=== PATIENT | female | born 1955 | race Caucasian/White ===

== ENCOUNTER → 2020-06-14 12:28 | Outpatient (BNVA) | payer MEDICARE, MEDICAID, SELFPAY | PROVIDERS: Referring Provider Family Medicine; Visit Provider Anesthesiology Pain Medicine | DX: M51.36 Other intervertebral disc degeneration, lumbar region (principal); M47.816 Spondylosis without myelopathy or radiculopathy, lumbar region; M54.9 Dorsalgia, unspecified; M47.812 Spondylosis without myelopathy or radiculopathy, cervical region; F43.10 Post-traumatic stress disorder, unspecified; F17.210 Nicotine dependence, cigarettes, uncomplicated | CPT/HCPCS: 99205 ==

== ENCOUNTER → 2021-02-16 13:42 | Outpatient (BNVA) | payer MEDICARE, MEDICAID, SELFPAY | PROVIDERS: Visit Provider Anesthesiology Pain Medicine | DX: M47.812 Spondylosis without myelopathy or radiculopathy, cervical region (principal); M47.816 Spondylosis without myelopathy or radiculopathy, lumbar region; M51.36 Other intervertebral disc degeneration, lumbar region; M79.604 Pain in right leg; M79.605 Pain in left leg; F17.210 Nicotine dependence, cigarettes, uncomplicated | CPT/HCPCS: 99214 ==

== ENCOUNTER 2021-02-16 14:29 | Outpatient (CLI) | payer MEDICARE, MEDICAID, SELFPAY ==
--- NOTE | 2021-02-16 14:37 | XR_ITS ---
WS: [email or web address] LUMBAR SPINE: 5 VIEWS TECHNIQUE: AP, obliques, lateral and L5-S1 spot. HISTORY: M47.816 - Spondylosis without myelopathy or radiculopathy... COMPARISON: None available. Diffuse osteopenia. L3 anterolisthesis by 2.5 mm and L4 anterolisthesis by 4.6 mm. Mild disc space na rrowing at L5-S1. Facet joint arthritis is moderate from L3-4 to L5-S1. Disc spaces are narrowed throughout. There is moderate bilateral foraminal stenosis. The most signifi cant stenosis is bilateral but greatest on the LEFT at L2-3 and L3-4 and L4-5. Mild SI joint narrowing. XR/XR lumbar spine min 4V [id number] IMPRESSION: 1. No lumbar spine fracture. 2. Mild diffuse osteopenia. 3. Mild anterolisthesis of L3 and L4. 4. Bilateral foraminal stenosis is diffuse but most significant on the LEFT fr om L2-3 to L4-5. 5. Facet joint arthritis most significant from L4-5 and L5-S1.
--- NOTE | 2021-02-16 14:37 | XR_ITS ---
WS: [email or web address] CERVICAL SPINE 5 VIEWS HISTORY: M47.812 - Spondylosis without myelopathy or radiculopathy... COMPARISON: None available. TECHNIQUE: AP, oblique and lateral radiographs. 2 mm anterolisthesis of C4. Mild disc space narrowing at C5-6 and C6-7. Bones are diffusely osteopeni c. Very mild narrowing of the foramen throughout the cervical spine. Lateral masses of C1 and C2 are aligned odontoid is intact. Facet joint arthritis bilaterally greatest at C5-6 and C6-7. XR/XR cervical spine 4-5V [id number] IMPRESSION: 1. No cervical spine fracture. 2. C4 anterolisthesis by 2 mm. 3. Mild mild diffuse narrowing of the foramen throughout the cervical spine an d mild facet joint arthritis, greatest at C5-6 and C6-7.
== END 2021-02-16 14:30 | disposition home or self-care (01) ==
PROVIDERS: PCP Family Medicine; Visit Provider Anesthesiology Pain Medicine
DX: M47.816 Spondylosis without myelopathy or radiculopathy, lumbar region (principal); M47.812 Spondylosis without myelopathy or radiculopathy, cervical region; M85.88 Other specified disorders of bone density and structure, other site; M48.061 Spinal stenosis, lumbar region without neurogenic claudication; M51.36 Other intervertebral disc degeneration, lumbar region; M79.604 Pain in right leg; M79.605 Pain in left leg; F17.210 Nicotine dependence, cigarettes, uncomplicated
CPT/HCPCS: 72050; 72110; 99214

== ENCOUNTER → 2021-03-02 14:20 | Outpatient (BNVA) | payer MEDICARE, MEDICAID, SELFPAY | PROVIDERS: PCP Family Medicine; Visit Provider Anesthesiology Pain Medicine | DX: M79.18 Myalgia, other site (principal); M51.36 Other intervertebral disc degeneration, lumbar region; M47.816 Spondylosis without myelopathy or radiculopathy, lumbar region; M47.812 Spondylosis without myelopathy or radiculopathy, cervical region; M79.604 Pain in right leg; M79.605 Pain in left leg | CPT/HCPCS: 20553; 99214 ==

== ENCOUNTER → 2021-03-15 14:37 | Outpatient (BNVA) | payer MEDICARE, MEDICAID, SELFPAY | PROVIDERS: PCP Family Medicine; Visit Provider Anesthesiology Pain Medicine | DX: M47.812 Spondylosis without myelopathy or radiculopathy, cervical region (principal); M54.16 Radiculopathy, lumbar region | CPT/HCPCS: 64490; 64491; 64492; J3490 ==

== ENCOUNTER → 2021-03-29 13:07 | Outpatient (BNVA) | payer MEDICARE, MEDICAID, SELFPAY | PROVIDERS: PCP Family Medicine; Visit Provider Anesthesiology Pain Medicine | DX: M47.812 Spondylosis without myelopathy or radiculopathy, cervical region (principal); M54.16 Radiculopathy, lumbar region | CPT/HCPCS: 64490; 64491; 64492; J3490 ==

== ENCOUNTER → 2021-04-19 09:29 | Outpatient (BNVA) | payer MEDICARE, MEDICAID, SELFPAY | PROVIDERS: PCP Family Medicine; Visit Provider Anesthesiology Pain Medicine | DX: M79.18 Myalgia, other site (principal); M51.36 Other intervertebral disc degeneration, lumbar region; M47.816 Spondylosis without myelopathy or radiculopathy, lumbar region; M47.812 Spondylosis without myelopathy or radiculopathy, cervical region; M79.604 Pain in right leg; M79.605 Pain in left leg | CPT/HCPCS: 20552; 20553; 99214 ==

== ENCOUNTER → 2021-05-10 13:40 | Outpatient (BNVA) | payer MEDICARE, MEDICAID, SELFPAY | PROVIDERS: PCP Family Medicine; Visit Provider Anesthesiology Pain Medicine | DX: M47.816 Spondylosis without myelopathy or radiculopathy, lumbar region (principal); F17.210 Nicotine dependence, cigarettes, uncomplicated | CPT/HCPCS: 64493; 64494; 64495; J3490 ==

== ENCOUNTER → 2021-06-05 09:34 | Outpatient (BNVA) | payer MEDICARE, MEDICAID, SELFPAY | PROVIDERS: PCP Family Medicine; Visit Provider Anesthesiology Pain Medicine | DX: M51.36 Other intervertebral disc degeneration, lumbar region (principal); M47.816 Spondylosis without myelopathy or radiculopathy, lumbar region; M47.812 Spondylosis without myelopathy or radiculopathy, cervical region; M79.604 Pain in right leg; M79.605 Pain in left leg; F17.210 Nicotine dependence, cigarettes, uncomplicated | CPT/HCPCS: 99214 ==

== ENCOUNTER → 2021-06-19 13:42 | Outpatient (BNVA) | payer MEDICARE, MEDICAID, SELFPAY | PROVIDERS: PCP Registered Nurse; Visit Provider Anesthesiology Pain Medicine | DX: F17.210 Nicotine dependence, cigarettes, uncomplicated (principal); M47.816 Spondylosis without myelopathy or radiculopathy, lumbar region | CPT/HCPCS: 64635; 64636; J1030 ==

== ENCOUNTER → 2021-07-19 11:26 | Outpatient (BNVA) | payer MEDICARE, MEDICAID, SELFPAY | PROVIDERS: PCP Registered Nurse; Visit Provider Registered Nurse | DX: R32 Unspecified urinary incontinence (principal) | CPT/HCPCS: 80053; 85025 ==

== ENCOUNTER 2021-08-02 13:52 | Outpatient (CLI) | payer MEDICARE, MEDICAID, SELFPAY ==
--- NOTE | 2021-08-02 14:03 | CT_ITS ---
WS: [email or web address] LDCT LUNG CANCER SCREENING TECHNIQUE: Noncontrast CT of the chest with coronal and sagittal reformatted images. CLINICAL INFORMATION: NICOTINE DEPENDENCE COMPARISON: None. DLP: 85.21 mGy.cm DIvol: Mean CTDIvol: 1.60 (mGy) All CT scans at [facility] use at least one of these dose optimization techniques: automat ed exposure control; mA and/or kV adjustment per patient size (includes targeted exams where dose is matched to clinical indication); or iterative reconstruction. FINDINGS: Calcified granuloma RIGHT upper lobe. Small noncalcified nodule RIGHT upper lobe measuring 5 mm. Frankie tional smaller tiny noncalcified nodules RIGHT upper lobe some subpleural in location. Tiny noncalcif ied nodules along the LEFT fissure largest measuring 5 mm. Mild aortic calcification. Normal caliber thoracic aorta. No mediastinal or hilar lymphadenopathy. No axillary lymphadenopathy. Coarse LEFT breast calcifications. Adrenal glands are normal. LEFT renal c yst. Moderate thoracic kyphosis. Chronic compression fractures in the mid thoracic spine with vertebr oplasty changes. CT/CT lung screening [id number] IMPRESSION: LUNG-RADS: 2-Benign Appearance or Behavior FOLLOW UP: 12 Month: Continue annual screening with LDCT
== END 2021-08-02 13:53 | disposition home or self-care (01) ==
LOC: RAD 13:56
PROVIDERS: PCP Registered Nurse; Visit Provider Nurse Practitioner Family
DX: J44.9 Chronic obstructive pulmonary disease, unspecified (principal); Z87.891 Personal history of nicotine dependence
CPT/HCPCS: 71271

== ENCOUNTER → 2021-08-09 14:14 | Outpatient (BNVA) | payer MEDICARE, MEDICAID, SELFPAY | PROVIDERS: PCP Registered Nurse; Visit Provider Anesthesiology Pain Medicine | DX: M79.18 Myalgia, other site (principal); M51.36 Other intervertebral disc degeneration, lumbar region; M47.816 Spondylosis without myelopathy or radiculopathy, lumbar region; M47.812 Spondylosis without myelopathy or radiculopathy, cervical region; F17.210 Nicotine dependence, cigarettes, uncomplicated | CPT/HCPCS: 20553; 99214; J1030; J3490 ==

== ENCOUNTER → 2021-08-22 15:17 | Outpatient (BNVA) | payer MEDICARE, MEDICAID, SELFPAY | PROVIDERS: PCP Registered Nurse; Referring Provider Anesthesiology Pain Medicine; Visit Provider Orthopaedic Surgery | DX: M47.812 Spondylosis without myelopathy or radiculopathy, cervical region (principal); S12.29 Other fracture of third cervical vertebra; X58.XXXA Exposure to other specified factors, initial encounter; M47.816 Spondylosis without myelopathy or radiculopathy, lumbar region | CPT/HCPCS: 72040; 72110; 99204 ==

== ENCOUNTER 2021-09-13 10:57 | Outpatient (CLI) | payer MEDICARE, MEDICAID, SELFPAY ==
--- NOTE | 2021-09-13 11:14 | MM_ITS ---
WS: [email or web address] BILATERAL 3D TOMOSYNTHESIS DIGITAL DIAGNOSTIC MAMMOGRAPHY WITH CAD CLINICAL INFORMATION: HX OF BREAST CANCER COMPARISON: August 07, 2019 LEFT only comparison TECHNIQUE: Bilateral CC, MLO, and ML views. FINDINGS: The breasts are composed of heterogeneous fibroglandular density, which can limit the detection of sm all underlying mass lesions. Vascular calcification. Prior postoperative changes lumpectomy upper-out er LEFT breast near the 12:00 position with parenchymal fibrosis. This is new from the prior outside examination August 07, 2019. Recommend correlation with clinical history. A few incidental punctate and lucent centered calcifications. ... Dense breast tissue upper outer RIG HT breast. Asymmetric density posterior depth RIGHT breast with slight spiculation measuring 8 mm bes t seen on the ML view. Additional dense asymmetric density anterior RIGHT breast measuring 11 mm near the 12:00 position. Re commend RIGHT diagnostic mammography with spot compression views and ultrasound in further evaluation . MPRESSION: MM/[place] [id number] BI-RADS: 0-Incomplete: Need additional imaging evaluation FOLLOW UP: Need Additional Imaging Recommendation RIGHT breast diagnostic mammography and ultrasound for further e valuation.
== END 2021-09-13 10:58 | disposition home or self-care (01) ==
PROVIDERS: PCP Registered Nurse; Visit Provider Nurse Practitioner Family
DX: Z12.31 Encounter for screening mammogram for malignant neoplasm of breast (principal)
CPT/HCPCS: 77062; 77063; 77067

== ENCOUNTER 2021-10-02 07:33 | Outpatient (CLI) | payer MEDICARE, MEDICAID, SELFPAY ==
--- NOTE | 2021-10-02 08:00 | MR_ITS ---
WS: [email or web address] MRI CERVICAL SPINE NONCONTRAST HISTORY: Chronic neck and low back pain. COMPARISON: None available. Technique: Multiplanar, multisequence noncontrast imaging of the cervical spine. Study is limited by motion artifact. Mild disc desiccation and foraminal osteophytes throughout the cervical spine. Increased edema or sig nal abnormality within the cord would be obscured with this amount of motion. No fracture or marrow e lyla identified. Moderate disc space narrowing is most significant at C5-6 and C6-7. Craniocervical junction, C1 and C2 relationship, odontoid process and soft tissues are normal. C2-C3: Normal. C3-C4: Mild osteophytic ridging. No stenosis. C4-C5: Very shallow central disc protrusion and osteophytic ridging. No significant stenosis. C5-C6: Moderate osteophytic ridging with small disc protrusions most significant contact on the RIGHT C6 nerve root. Mild central stenosis with moderate bilateral foraminal stenosis and facet joint arth ritis. C6-C7: Diffuse annular disc bulging with disc osteophyte complexes and the foramina. Central disc ost eophyte and bilateral foraminal disc osteophyte protrusions. Mild central and moderate bilateral fora erinn stenosis. Mild facet joint arthritis. C7-T1: Normal. Paraspinal soft tissue are normal. MR/MR cervical spin wo con* [id number] IMPRESSION: 1. Advanced degenerative disc disease and spondylosis at C5-6 and C6-7. 2. Mild central and bilateral foraminal stenosis at C5-6 with facet joint arth ritis. Disc osteophyte complexes contributing to the stenosis. 3. Mild central and moderate bilateral foraminal stenosis and facet arthritis at C6-7. Disc osteophytes contributing to the stenosis.
--- NOTE | 2021-10-02 08:45 | MR_ITS ---
WS: [email or web address] MRI LUMBAR SPINE NONCONTRAST HISTORY: Chronic back and neck pain. COMPARISON: None available. TECHNIQUE: Sagittal and axial multisequence imaging is submitted. There is marked increase in the thoracic kyphosis. Vertebroplasty changes within the vertebral bodies at T6 and T8 . Minimal compression deformity of T9 without retropulsion. Mild increase in the lumbar lordosis. L3 and L4 anterolisthesis by 2 mm Disc spaces are mildly narrowed and desiccated. No acute fracture or marrow edema. Conus terminates normally at L1-2 disc level. L3 Schmorl's node defect superior endplate. L1-L2: Mild facet joint arthritis, LEFT greater than RIGHT. No high-grade stenosis. L2-L3: Mild annular disc bulge with mild ligamentum flavum disease and facet arthritis. Very mild for aminal narrowing. L3-L4: Mild annular disc bulge with moderate ligamentum flavum disease and facet arthritis encroachin g into the thecal sac. There is mild central, subarticular recess and foraminal stenosis. L4-L5: Mild annular disc bulge with a LEFT foraminal fissure. Moderate ligamentum flavum disease and facet arthritis. There is moderate encroachment into the subarticular recesses and mild central steno sis. No foraminal stenosis. Bilateral L5 nerve root and mild encroachment. L5-S1: Mild diffuse annular disc bulging and facet joint osteophytes. Marked bilateral facet arthriti s, RIGHT greater than LEFT. LEFT paracentral and proximal foraminal disc protrusion mild central and bilateral subarticular recess encroachment. Mild bilateral foraminal narrowing. Indeterminate well-circumscribed round mass LEFT kidney. Intermediate signal measures 2.5 x 2.2 cm. MR/MR lumbar spine wo con* [id number] IMPRESSION: 1. L3 and L4 anterolisthesis by 2 mm. No fracture. 2. Schmorl's nodes superior endplate of L3. 3. Mild central, bilateral subarticular recess and foraminal stenosis at L3-4 due to combination of factors as above. Most significant encroachment upon the traversing L4 nerve roots. Mild facet arthritis at L3-4. 4. Mild central stenosis with moderate bilateral subarticular recess stenosis at L4-5. Mild bilateral L5 nerve root encroachment. Moderate facet joint arthri tis. 5. Marked bilateral facet joint arthritis at L5-S1, RIGHT greater than LEFT. 6. LEFT paracentral and proximal foraminal disc protrusion at L5-S1 with mild central and bilateral subarticular recess encroachment. Mild bilateral foramina l stenosis. 7. Indeterminate mass LEFT kidney measures 2.5 x 2.2 cm. Recommend follow-up r enal ultrasound to evaluate for cystic or solid mass.
== END 2021-10-02 07:34 | disposition home or self-care (01) ==
LOC: RAD 07:40
PROVIDERS: PCP Registered Nurse; Visit Provider Orthopaedic Surgery
DX: M47.812 Spondylosis without myelopathy or radiculopathy, cervical region (principal); M47.816 Spondylosis without myelopathy or radiculopathy, lumbar region; M51.36 Other intervertebral disc degeneration, lumbar region
CPT/HCPCS: 72141; 72148

== ENCOUNTER 2021-10-04 14:22 | Outpatient (CLI) | payer MEDICARE, MEDICAID, SELFPAY ==
--- NOTE | 2021-10-04 14:38 | MM_ITS ---
WS: [email or web address] RIGHT 3D TOMOSYNTHESIS DIGITAL MAMMOGRAPHY WITH CAD CLINICAL INFORMATION: ABNORMAL MAMMOGRAM;HX OF BREAST CA COMPARISON: September 13, 2021 TECHNIQUE: 2 views of the right breast were obtained. FINDINGS: The right breast is composed of heterogeneous fibroglandular density tissue, which can limit the dete ction of small underlying mass lesions. Punctate calcification RIGHT breast. Vascular calcification. Asymmetric density posterior depth RIGHT breast measuring 8 mm is less well seen today and partially compresses out on spot compression views. Additional stable asymmetric density anterior RIGHT breast measuring 11 mm near the 12:00 position. U ltrasound is pending. ULTRASOUND BREAST RIGHT TECHNIQUE: Ultrasound right breast focused area of concern. CLINICAL INFORMATION: ABNORMAL MAMMOGRAM;HX OF BREAST CA COMPARISON: None. FINDINGS: Ultrasound RIGHT breast at the 9 to 12:00 position. Dense underlying Breast tissue. Incidental ductal ectasia. Ultrasound 12:00 position 1 cm from the nipple demonstrates dense fibrous tissue. No suspicious abnor mality seen in this area. At the 9:00 position, 5 cm from the nipple, is a 0.7 x 0.2 x 0.58 cm lymph node with normal fatty hil um. No suspicious findings. No lesions to target for biopsy. MM/[place] [id number] IMPRESSION: BI-RADS: 2-Benign FOLLOW UP: 1 Year Follow-up Recommend return to annual diagnostic mammography.
== END 2021-10-04 14:23 | disposition home or self-care (01) ==
LOC: RAD 14:24
PROVIDERS: PCP Registered Nurse; Visit Provider Nurse Practitioner Family
DX: Z85.3 Personal history of malignant neoplasm of breast (principal); R92.8 Other abnormal and inconclusive findings on diagnostic imaging of breast
CPT/HCPCS: 76642; 77061

== ENCOUNTER → 2021-10-19 14:30 | Outpatient (BNVA) | payer MEDICARE, MEDICAID, SELFPAY | PROVIDERS: PCP Nurse Practitioner Family; Visit Provider Orthopaedic Surgery | DX: M48.062 Spinal stenosis, lumbar region with neurogenic claudication (principal) | CPT/HCPCS: 99214 ==

== ENCOUNTER 2021-10-30 16:13 | Outpatient (CLI) | payer MEDICARE, MEDICAID, SELFPAY ==
--- NOTE | 2021-10-30 | US_ITS ---
WS: [email or web address] RENAL ULTRASOUND HISTORY: MASS OF LEFT KIDNEY COMPARISON: None available. TECHNIQUE: 2-D and color Doppler imaging of the kidney submitted. Right kidney: 8.6 cm x 4.4 cm x 3.0 cm. Normal echogenicity with no hydronephrosis or mass. Lower normal size kidney. Left kidney: 9.8 cm x 4.6 cm x 4.9 cm. Normal size kidney with normal echogenicity. No hydronephrosis. Simple appearing cyst measuring 1.8 x 2.4 x 2.0 cm in the mid kidney. Aorta: Normal. Urinary Bladder: Normal distention. US/US renal BI* [id number] IMPRESSION: 1. No hydronephrosis or solid mass identified. 2. Simple cyst LEFT kidney with a maximum diameter 2.4 cm.
== END 2021-10-30 16:14 | disposition home or self-care (01) ==
LOC: RAD 16:15
PROVIDERS: PCP Nurse Practitioner Family; Visit Provider Family Medicine
DX: N28.89 Other specified disorders of kidney and ureter (principal)
CPT/HCPCS: 76770

== ENCOUNTER 2021-11-01 08:47 | Day surgery (SDC) | payer MEDICARE, MEDICAID, SELFPAY ==
--- NOTE | 2021-10-31 10:33 | P.ANESASSM_ITS ---
Pre-Anesthetic Assessment Height/Weight: Height 1.63 m Operation Date: 11/01/21 14:35 Proposed Procedures p Lumbar Spine Decompression (MIS) L3/4 L4/5 M48.062 [id number](Not Applicable) - Juanjose Meyer, Familial anesthetic complications: None Social Tobacco and No alcohol Exam alert, oriented x 3, clear to auscultation bilaterally and regular rate & rhythm Airway Mallampati: Class I Dentition: other (no teeth) Pulmonary None reported CV/HEM None reported None reported Hepatic None reported GI None reported Metabolic None reported Musc/skel Lower Back Pain Neuropsych Seizure (unknown etiology - ? head trauma) Anesthetic Plan ASA status: 3 Anesthesia: General Risk of > 500 ml blood loss (7ml/kg in children): No Medications/Allergies Home Medications Medication Instructions Recorded Confirmed Last Taken Type alprazolam 2 mg tablet 2 mg PO TID PRN 02/16/21 10/19/21 Unknown History wfyqpis-vagdjtmrghswi-opkkeitf 250 1 tab PO Q6H PRN 06/19/21 10/19/21 Unknown History mg-250 mg-65 mg tablet (Excedrin Migraine) levetiracetam 1,000 mg tablet 1,000 mg PO BID 06/20/21 10/19/21 Unknown History (Keppra) olanzapine 5 mg tablet 10 mg PO DAILY tab 06/20/21 10/19/21 Unknown History temazepam 15 mg capsule mg PO 06/20/21 10/19/21 Unknown History terbinafine HCl 250 mg tablet 250 mg PO DAILY #30 tab 07/21/21 10/19/21 Unknown Rx Allergies Allergy/AdvReac Type Severity Reaction Status Date / Time propoxyphene [From Darvon] Allergy Intermediate Hives Verified 10/31/21 10:31 [facility] Anesthesia Medical History PTSD (post-traumatic stress disorder) Surgical History H/O: hysterectomy 1988 History of tubal ligation Hx of tonsillectomy Social History Smoking and tobacco status: current every day smoker cigarettes Packs smoked per day: 0.5 Alcohol intake: never Adopted: No Caregiver/support person: No Lives independently: Yes History of recent travel: No Sexually active: Yes Current gender identity: Female Data Anesthesia Cardiac Studies: No Data to Display
[2021-10-31 10:49] VITALS: BMI 22.3
[2021-11-01] VITALS (10 sets, daily range): BP systolic 106–133; BP diastolic 76–87; PULSE 71–93; RESP 16–20; TEMP 36.2–36.7; O2SAT 93–100
--- NOTE | 2021-11-01 | SCC_ITS ---
Procedure done: 1. L3/4 laminectomy with partial facetectomies bilateral 2. L4/5 laminectomies with partial facetectomies bilateral 24.2 seconds of fluoroscopic guidance, for a cumulative dose of 6.96 mGy, was provided to Dr. Meyer by the radiology department. C-arm images of the lumbar spine were saved for the patient's permanent record. [facility]
[2021-11-01] MEDS: sodium chloride 0.9% 1,000 ML 30 ML IV (09:13)
[2021-11-01] MEDS: HYDROmorphone 1 mg/mL INJ 1 mL 0.5 MG IVP (09:35)
[2021-11-01] MEDS: fentaNYL 50 mcg/mL INJ 2mL IVP (09:45)
--- NOTE | 2021-11-01 10:08 | P.ANESUD_ITS ---
Pre-Anesthetic Update Pre-Anesthetic Assessment: Date of Surgery/Procedure: 11/01/21 Preop Kelley gnosis: Lumbar stenosis with neurogenic claudication Proposed Procedure: Operation Date: 11/01/21 10:15 Proposed Procedures p Lumbar Spine Decompression (MIS) L3/4 L4/5 M48.062 [id number](Not Applicable) - Juanjose Meyer, DO Any changes to Pre-Anesthetic Assessment?: No Last Intake: Intake Last Liquid Date 10/31/21 Last Liquid Time 19:30 Last Solid Date 10/31/21 Last Solid Time 21:00 Vitals: Temperature 97.2 F L 11/01/21 08:59 Temperature Source Temporal Artery S can 11/01/21 08:59 Pulse Rate 93 11/01/21 08:59 Respiratory Rate 18 11/01/21 09:45 Respiratory Effort 11/01/21 09:45 Respiratory Depth Normal 11/01/21 09:45 Respiratory Patter n 11/01/21 09:45 Blood Pressure 106/76 11/01/21 08:59 Blood Pressure Erna n 86 11/01/21 08:59 Pulse Oximetry 94 11/01/21 08:59 Oxygen Delivery Me thod 11/01/21 09:00 Exam: Pre-Anes Outpt Exam: alert, oriented x 3, clear to auscultation bilaterally and regular rate & rhythm Cardiac Studies: No Data to Display
--- NOTE | 2021-11-01 10:08 | W.PM.OPSUD ---
Surgery/Procedure H&P Update DATE OF PROCEDURE: November 01, 2021 DATE H&P PERFORMED: 10/19/21 H&P UPDATE INFORMATION: I have reviewed H&P completed within last 30 days, I have examined patient prior to procedure and No changes to prior documentation PREOP DIAGNOSIS: Lumbar stenosis with neurogenic claudication PLANNED PROCEDURE: Operation Date: 11/01/21 10:15 Proposed Procedures p Lumbar Spine Decompression (MIS) L3/4 L4/5 M48.062 [id number](Not Applicable) - Juanjose Meyer DO
--- NOTE | 2021-11-01 12:11 | P.OP_ITS ---
Operative Report Date of procedure: November 01, 2021 Pre-op diagnosis: Preop Diagnosis Lumbar stenosis with neurogenic claudication Post-op diagnosis: same Procedure done: 1. L3/4 laminectomy with partial facetectomies bilateral 2. L4/5 laminectomies with partial facetectomies bilateral Surgeon: Juanjose Meyer Retail Wireless Sales Consultant: Henrik Mckeon Retail Wireless Sales Consultant: The regional vice president surgical sales, Henrik Mckeon, PAC was needed for his expertise under the microscope. He was important and necessary throughout the procedure to complete in a safe and timely manner. He assisted with patient positioning prepping and draping tissue retraction suctioning of the operative field protection of the dural sac and tissue closure Procedure: 1. L3/4 laminectomy with partial facetectomies bilateral 2. L4/5 laminectomies with partial facetectomies bilateral Patient is brought to the operative suite. After undergoing anesthesia they are placed in the prone position. All areas of impingement are well padded. Patient is then prepped and draped in the normal sterile fashion. A skin incision is made over the L4/5 level. This is confirmed under c-arm guidance. A series of dilators are passed and the tubular retractor is docked on the L4 lamina. A bovie is used to clear the soft tissue off the lamina and the L 4/5 facet joint. A high speed ron is then used to perform the laminectomy and take down the medial aspect of the L 4/5 facet joint. A kerrison rongeure was then used to take down the remaining lamina and smooth the edged of the laminectomy up to the point where the ligamentum flavum attaches. Attention was then brought to the medial aspect of the facet joint. The remaining medial aspect of the superior and inferior aspect of the facet joint were taken down with the kerrison from the pedicle of L4 to L 5. The facet joint had significant hypertrophy. Attention was then brought to the Ligamentum Flavum. The ligament was taken down from the lamina of L4 to L5 and out medially to the remaining facet joint. The ligament was thick. The dura was then exposed. The dura was in good repair. The L4 nerve was then traced with a curette out the L4/5 foramen and found to be adequately decompressed. The L5 nerve was traced with a curette around the L5 pedicle. The lateral recess was opened with a kerrison helping to further decompress the L5 nerve. The tubular retractor was then tilted to the contralateral side. The bovie was used to take down the soft tissue on the spinous process. The high speed ron was used to take down the spinous process and then the contralateral lamina of L4. The kerrison rongeur was used to take down the remaining lamina to the point where the ligamentum flavum attached and the ligamentum flavum was taken down from L4 to L5. The kerrison rongeur was then used to reach across and take down the medial aspect of the contralateral L4/5 facet joint.The currete was used to trace the contralateral L4 nerve out the L4/5 foramen to make sure it was decompressed adequatesly and the L5 was traced around the L5 pedicle. The lateral recess was opened further with the kerrison to ensure the L5 is adequately decompressed. Wound is then irrigated copiously with saline and surgiflo is used to stop any bleeding. The tubular retractor is removed A skin incision is made over the L3/4 level. This is confirmed under c-arm guidance. A series of dilators are passed and the tubular retractor is docked on the L3 lamina. A bovie is used to clear the soft tissue off the lamina and the L 3/4 facet joint. A high speed ron is then used to perform the laminecto my and take down the medial aspect of the L 3/4 facet joint. A kerrison rongeure was then used to take down the remaining lamina and smooth the edged of the laminectomy up to the point where the ligamentum flavum attaches. Attention was then brought to the medial aspect of the facet joint. The remaining medial aspect of the superior and inferior aspect of the facet joint were taken down with the kerrison from the pedicle of L3 to L 4. The facet joint had significant hypertrophy. Attention was then brought to the Ligamentum Flavum. The ligament was taken down from the lamina of L3 to L4 and out medially to the remaining facet joint. The ligament was thick. The dura was then exposed. The dura was in good repair. The L3 nerve was then traced with a curette out the L3/4 foramen and found to be adequately decompressed. The L4 nerve was traced with a curette around the L4 pedicle. The lateral recess was opened with a kerrison helping to further decompress the L4 nerve. The tubular retractor was then tilted to the contralateral side. The bovie was used to take down the soft tissue on the spinous process. The high speed ron was used to take down the spinous process and then the contralateral lamina of L3. The kerrison rongeur was used to take down the remaining lamina to the point where the ligamentum flavum attached and the ligamentum flavum was taken down from L3 to L4. The kerrison rongeur was then used to reach across and take down the medial aspect of the contralateral L3/4 facet joint.The currete was used to trace the contralateral L3 nerve out the L3/4 foramen to make sure it was decompressed adequatesly and the L4 was traced around the L4 pedicle. The lateral recess was opened further with the kerrison to ensure the L4 is adequately decompressed. Wound is then irrigated copiously with saline and surgiflo is used to stop any bleeding. The tubular retractor is removed and the wound is closed with vicryl and monocryl suture. Glue is then used to protect the wound. A sterile dressing is then placed. Patient was then placed in the supine position and transferred to the PACU in stable condition.
--- NOTE | 2021-11-01 12:51 | XR_ITS ---
WS: [email or web address] Lumbar spine, C-arm fluoroscopy, 11/01/2021 Clinical Data: OR PICS Comparison: None. Findings: Dr. Meyer performed a lumbar decompression. XR/XR lumbar spine 1V [id number] Impression: Lumbar decompression.
--- NOTE | 2021-11-01 14:20 | ANE.PACU2 ---
Inpatient post-anesthesia follow up: Airway intact: Yes Vital signs: Temperature 98.0 F Pulse Rate 79 Respiratory Rate 18 Blood Pressure 130/79 Pulse Oximetry 94 Oxygen Delivery Me thod Room Air Oxygen Flow Rate 5 Fraction of Inspir ed Oxygen Hydration adequate: Yes Nausea and vomiting: Yes Pain level: 3 Mental status: Baseline
== END 2021-11-01 12:55 | disposition home or self-care (01) ==
PROVIDERS: PCP Nurse Practitioner Family; Visit Provider Orthopaedic Surgery
PROC: (CPT 63005; principal; 2021-11-01 09:45)
DX: M48.062 Spinal stenosis, lumbar region with neurogenic claudication (principal); F43.10 Post-traumatic stress disorder, unspecified; F17.210 Nicotine dependence, cigarettes, uncomplicated
CPT/HCPCS: 63047; 63048; 72020; 76000; J1100; J1170; J2370; J2405; J2704; J2710; J3010; J3490; J7030

== ENCOUNTER → 2021-11-14 13:58 | Outpatient (BNVA) | payer MEDICARE, MEDICAID, SELFPAY | PROVIDERS: PCP Nurse Practitioner Family; Visit Provider Orthopaedic Surgery | DX: M47.12 Other spondylosis with myelopathy, cervical region (principal); Z47.89 Encounter for other orthopedic aftercare; Z98.890 Other specified postprocedural states | CPT/HCPCS: 72100; 99024; 99214 ==

== ENCOUNTER → 2021-11-30 14:56 | Outpatient (BNVA) | payer MEDICARE, MEDICAID, SELFPAY | PROVIDERS: PCP Nurse Practitioner Family; Visit Provider Orthopaedic Surgery | DX: Z47.89 Encounter for other orthopedic aftercare (principal); Z98.890 Other specified postprocedural states; M50.322 Other cervical disc degeneration at C5-C6 level; M50.323 Other cervical disc degeneration at C6-C7 level | CPT/HCPCS: 72040; 72100; 99024 ==

== ENCOUNTER 2022-01-04 10:09 | Outpatient (CLI) | payer MEDICARE, MEDICAID, SELFPAY ==
--- NOTE | 2022-01-04 10:18 | XRR_ITS ---
PROCEDURE INFORMATION: Exam: XR Cervical Spine Exam date and time: 01/04/2022 10:28 AM Age: 66 years old Clinical indication: Neck pain; Prior surgery; Surgery type: L spine, breast; Patient HX: HX of breast cancer; Additional info: M47.12 - other spondylosis with myelopathy, cervical region TECHNIQUE: Imaging protocol: Radiologic exam of the cervical spine. Views: 2 or 3 views. COMPARISON: CR XR cervical spine 3V* [id number] 11/30/2021 3:20 PM FINDINGS: Bones/joints: No acute fracture. Normal alignment. There is multilevel degenerative changes, manifested by intervertebral disc space narrowing, endplate osteophytes and facet joint arthrosis. Soft tissues: Unremarkable. XR/XR cervical spine 3V* [id number] IMPRESSION: 1. No acute findings. 2. Degenerative changes of the cervical spine.
== END 2022-01-04 10:10 | disposition home or self-care (01) ==
LOC: RAD 10:12
PROVIDERS: PCP Nurse Practitioner Family; Visit Provider Orthopaedic Surgery
DX: M47.12 Other spondylosis with myelopathy, cervical region (principal)
CPT/HCPCS: 72040

== ENCOUNTER → 2022-06-26 14:16 | Outpatient (BNVA) | payer MEDICARE, MEDICAID, SELFPAY | PROVIDERS: PCP Registered Nurse; Visit Provider Registered Nurse | DX: Z02.83 Encounter for blood-alcohol and blood-drug test (principal) | CPT/HCPCS: 80307 ==

== ENCOUNTER 2022-07-24 11:10 | Emergency (ER) | payer MEDICARE, MEDICAID, SELFPAY ==
[2022-07-24 11:17] VITALS: BP 159/84; PULSE 90; RESP 20; TEMP 36.8; O2SAT 95; BMI 20.5
--- NOTE | 2022-07-24 11:52 | W.ED.NECK ---
HPI - Neck Pain/Injury General: Chief Complaint: Neck Pain/Injury Stated Complaint: Neck Pain Time Seen by Provider: 07/24/22 11:37 Source: patient Mode of arrival: ambulatory Limitations: no limitations History of Present Illness: Patient is a 67-year-old female presents to ED today with a complaint of chronic neck pain. Patient states she broke her neck back in 2019 and has pain ever since. Patient states at some point she was told her neck did not require surgery. Reportedly has followed up with multiple specialists including neurosurgeons and pain management providers. According to review of documentation patient has seen Dr. Meyer for her neck and he did recommend surgery. Patient states she was recommended to go to Dr. Walters for pain management/shots in her neck but when questioned on this she states that I do not like him-there was something about him and I do not trust him . Looking at previous documentation she has seen Dr. Walters quite a bit in the past. She states she had been going to Dr. Cosby for pain management who is prescribing her oxycodone but states her daughter sold her pills so she was short so they terminated her contract. She is scheduled at a new pain management clinic in [place] on 08/10. She is here requesting pain medication. MD complaint: neck pain Associated symptoms: Denies headache(s) or nausea Review of Systems Const: Denies: fever(s), chills, body aches, fatigue or malaise Card: Denies: chest pain Resp: Denies: dyspnea GI: Denies: nausea or vomiting Musc: Reports: neck pain (chronic) Skin/Breast: Denies: rash Neuro: Denies: headache(s), numbness in extremities, weakness in extremities or sensory changes PFS ED PFSH: Medical History Psychiatric care PTSD (post-traumatic stress disorder) Surgical History H/O: hysterectomy 1988 History of tubal ligation Hx of tonsillectomy Social History Smoking and tobacco status: current every day smoker cigarettes Packs smoked per day: 0.75 Years cigarettes smoked: 50 Quit status (tobacco): has tried quititng Number of times tried to quit tobacco: 4 Second hand smoke exposure: No Smoking risk assessment/counseling performed?: No Alcohol intake: former Desire information about alcohol rehabilitation?: No Counseling given: No Desire information about substance/drug rehabilitation?: No Counseling given: No Adopted: No Caregiver/support person: No Lives independently: Yes Sexually active: Yes Current gender identity: Female Physical Exam Const: COMMON NORMALS: no acute distress, average body habitus, patient oriented x3, no limitations, alert and well nourished HENMT: COMMON NORMALS: normocephalic and atraumatic HEAD & SCALP: normal to inspection, normocephalic and atraumatic Neck/C-Spine: COMMON NORMALS: no meningeal signs GENERAL: Yes normal visual inspection CERVICAL SPINE: Yes pain with cervical ROM, Yes Cervical spine tenderness and No step off deformity Extremity: COMMON NORMALS: normal to inspection GENERAL: Yes normal exam except as noted Neuro: COMMON NORMALS: patient oriented x3, moves all extremities, no focal motor deficits and no sensory deficits noted SENSORIUM/ORIENTATION: Yes alert MENINGEAL SIGNS: Yes no meningeal signs Course Vital Signs: Vital signs: Vital Signs Temperature 98.2 F 07/24/22 11:17 Pulse Rate 83 07/24/22 12:31 Respiratory Rate 16 07/24/22 12:31 Blood Pressure 159/84 07/24/22 11:17 Pulse Oximetry 97 07/24/22 12:31 Oxygen Delivery Me thod 07/24/22 11:17 MDM - Neck Pain/Injury Medical Decision Making I told patient I am not prescribing her narcotic pain medication from the ED just because her pain management contract was terminated. Patient is agreeable to trying muscle relaxers and steroids for her discomfort. She can follow-up with her new pain management appointment on the in [place]. Discharge Plan Discharge Patient Disposition: Home Clinical Impression: Chronic neck pain Condition: Stable Prescriptions: New methocarbamol 500 mg tablet 1,000 mg PO Q8H Qty: 30 0RF Medrol (Frankie) 4 mg tablets,dose pack See Rx Instructions .ROUTE .COMPLEX Qty: 21 0RF Rx Instructions: orally per package directions No Action olanzapine [Zyprexa] 5 mg tablet 20 mg PO .HS levetiracetam [Keppra] 1,000 mg tablet 500 mg PO BID hydroxyzine HCl 50 mg tablet 50 mg PO .at bedtime 10 Days Qty: 10 0RF Discharge Orders: Discharge ED (Routine); Ordered 07/24/22 Ordered By: Cecilia Garcia Activity Restrictions/Additional Instructions: Please follow-up with your pain management appointment on the as scheduled. You need to follow-up with Dr. Meyer IF you are wanting to pursue surgery-according to what I can see, he did recommend surgery for your neck. Coding Level of Care Code ED Chemical Handler for Trevin Land
[2022-07-24 12:31] VITALS: PULSE 83; RESP 16; O2SAT 97
--- NOTE | 2022-07-31 13:13 | DCPLANNER ---
Addendum entered by Rita Patterson 08/08/22 09:04: Patient had a follow up appointment to [facility] with Hussain Le at [facility] - patient did attend appointment Addendum entered by Rita Patterson 07/31/22 13:14: network operations project manager called [facility], gave clinic patients information. A follow up appointment was scheduled for Sunday, August 07, 2022 at 9:00 with Hussain Le. network operations project manager called patient and gave patient the appointment information. Original Note: 07.28.22 - patient was called due to no primary care physician - patient stated that she would like to be seen by a female.
== END 2022-07-24 12:32 | disposition home or self-care (01) ==
PROVIDERS: Emergency Provider Physician Assistant
DX: G89.29 Other chronic pain (principal); M54.2 Cervicalgia; F17.210 Nicotine dependence, cigarettes, uncomplicated
CPT/HCPCS: 99283

== ENCOUNTER → 2023-05-09 14:52 | Outpatient (BNVA) | payer MEDICARE, MEDICAID, SELFPAY | PROVIDERS: PCP Family Medicine; Visit Provider Physician Assistant | DX: S22.059D Unspecified fracture of T5-T6 vertebra, subsequent encounter for fracture with routine healing; S22.069D Unspecified fracture of T7-T8 vertebra, subsequent encounter for fracture with routine healing; X58.XXXD Exposure to other specified factors, subsequent encounter | CPT/HCPCS: 72072; 72110; 99214 ==

== ENCOUNTER → 2023-10-10 14:42 | Outpatient (BNVA) | payer MEDICARE, MEDICAID, SELFPAY | PROVIDERS: PCP Family Medicine; Visit Provider Podiatrist Foot & Ankle Surgery | DX: L60.3 Nail dystrophy | CPT/HCPCS: 99203 ==

== ENCOUNTER → 2024-10-13 16:20 | Outpatient (BNVA) | payer MEDICARE, MEDICAID, SELFPAY | PROVIDERS: PCP Family Medicine; Visit Provider Orthopaedic Surgery | DX: M48.062 Spinal stenosis, lumbar region with neurogenic claudication (principal); S22.080A Wedge compression fracture of T11-T12 vertebra, initial encounter for closed fracture; X58.XXXA Exposure to other specified factors, initial encounter | CPT/HCPCS: 36415; 72050; 72072; 80053; 81001; 85025; 99214 ==

== ENCOUNTER → 2024-10-16 10:58 | Outpatient (BNVA) | payer MEDICARE, MEDICAID, SELFPAY | PROVIDERS: PCP Family Medicine; Visit Provider Family Medicine | DX: Z01.818 Encounter for other preprocedural examination (principal) | CPT/HCPCS: 93005 ==

== ENCOUNTER 2024-10-21 07:34 | Day surgery (SDC) | payer MEDICARE, MEDICAID, SELFPAY ==
[2024-10-21] VITALS (11 sets, daily range): BP systolic 118–157; BP diastolic 75–100; PULSE 90–115; RESP 16–18; TEMP 36.2–36.4; O2SAT 93–98; BMI 22.6
--- NOTE | 2024-10-21 07:47 | SC_ITS ---
WS: [id number] EXAMINATION: C-arm FL for Kyphoplasty ORDER DATE: 10/21/2024 7:47 AM REASON FOR EXAM: Surgery COMPARISON: None available. FLUOROSCOPY TIME: 65 seconds # OF SPOT FILMS: 3 FINDINGS: Vertebroplasty of compression fracture of T9. Opacified methylmethacrylate within the T9 vertebral body with some extravasation into the T9-T10 disc space. SC/C-arm FL for Kyphoplasty IMPRESSION: T9 vertebroplasty as above.
[2024-10-21] MEDS: sodium chloride 0.9% 1,000 ML 30 ML IV (08:24)
--- NOTE | 2024-10-21 09:08 | W.PM.OPSUD ---
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
[2024-10-21] MEDS: ceFAZolin 2,000 mg SDV 2000 MG IVP (09:33)
[2024-10-21] MEDS: lidocaine-epi 1% 20 mL INJ 10 ML INJECTION (10:13)
--- NOTE | 2024-10-21 10:15 | ANES.PREANE2 ---
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 T12 Operation Date: 10/21/24 09:15 Proposed Procedures p Kyphoplasty T9 and T12(Not Applicable) - Juanjose Meyer, DO Was Beta Jose taken within 24 hours: N/A Was Clonidine taken within 24 hours: N/A Last intake: Intake Last Liquid Date 10/20/24 Last Liquid Time 23:00 Last Solid Date 10/20/24 Last Solid Time 09:00 Social No alcohol and No tobacco Exam alert, oriented x 3, clear to auscultation bilaterally and regular rate & rhythm Airway Submandibular: within normal limits Cervical ROM: within normal limits Mallampati: Class II Dentition: full Anesthetic Plan ASA status: 2 Anesthesia: General Other: No prior issues with anesthesia NPO since yesterday evening Patient denies any cardiac or pulmonary issues History of seizures, stopped taking Keppra a few months ago. Has not had a seizure in over 10 years. Depressive disorder/anxiety noted METs greater than 4 Plan for general anesthesia Medications/Allergies Home Medications ?Medication ?Instructions ?Recorded ?Confirmed ?Last Taken ?Type clonazepam 1 mg tablet 1 mg PO QPM 10/10/23 10/20/24 10/20/24 History levetiracetam 500 mg tablet 500 mg PO DAILY 10/10/23 10/21/24 Unknown History hydrocodone 5 mg-acetaminophen 325 1 tab PO BID pain 10 days #20 tabs 10/13/24 10/20/24 10/19/24 Rx mg tablet Allergies Allergy/AdvReac Type Severity Reaction Status Date / Time propoxyphene (From Darvon) Allergy Intermediate Hives Verified 10/16/24 11:25 Current Medications Generic Name Dose Route Start Last Admin Trade Name Freq PRN Reason Stop Dose Admin Sodium Chloride 1,000 mls @ 30 mls/hr 10/21/24 08:00 10/21/24 08:24 Sodium Chloride 0.9% IV 10/22/24 07:59 30 mls/hr .Q24H YOGI Administration PFSH Anesthesia Medical History PTSD (post-traumatic stress disorder) Surgical History Hx of tonsillectomy History of tubal ligation H/O: hysterectomy 1987 Social History Smoking and tobacco/nicotine status: current every day tobacco/nicotine user cigarettes Packs smoked per day: 0.75 Years cigarettes smoked: 50 Quit status (tobacco/nicotine): has tried quititng Number of times tried to quit tobacco: 4 Second hand smoke exposure: No Alcohol intake: former Substance/Drug Use: former Adopted: No Caregiver/support person: No Lives independently: Yes Sexually active: Yes Do you think of yourself as: Straight/Heterosexual Current gender identity: Female
--- NOTE | 2024-10-21 10:36 | P.OP_ITS ---
Operative Report Date of procedure: October 21, 2024 Pre-op diagnosis: T9 and T12 wedge osteoporotic traumatic compression fracture Post-op diagnosis: same Procedure done: 1. T9 kyphoplasty 2. T12 kyphoplasty Surgeon: Juanjose Meyer DO Estimated blood loss (mL): 5 Procedure: 1. T9 kyphoplasty 2. T12 kyphoplasty There is relatively severe appearing on anesthesia was placed in the prone position. Arteries appear well-padded. Patient's preoperative muscle fashion. Biplanar C-arm was brought in T9 T12 levels were identified. The AP was identified at T12 and skin was made over the left pedicle. The awl was inserted. Followed by the drill. Followed by the balloon. Balloon was in flated and deflated. Next tension was brought to the T9 level. This was done by making skin incision over the left pedicle. Awl was inserted. Followed by the drill. Followed by balloon. She was brought to placing cement into the T9 vertebrae. Once this was confirmed to be in good position. Attention was then brought to the T12 level. Same was then injected in the T12 level AP and lateral fluoroscopy and shows in good position. Finals were taken splint was in good position. Some of leaked out of the bottom of T9 but in good position nothing back traction posterior. Was irrigated closed with nylon suture. Sterile dressings applied patient transferred the PACU in stable addition.
--- NOTE | 2024-10-21 12:49 | ANE.PACU2 ---
Inpatient post-anesthesia follow up: Airway intact: Yes Vital signs: Temperature 97.2 F Pulse Rate 102 Respiratory Rate 18 Blood Pressure 142/87 Pulse Oximetry 96 Oxygen Delivery Me thod Room Air Oxygen Flow Rate Fraction of Inspir ed Oxygen Hydration adequate: Yes Nausea and vomiting: No Pain level: 1 Mental status: Baseline
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
== END 2024-10-21 12:05 | disposition home or self-care (01) ==
PROVIDERS: PCP Family Medicine; Visit Provider Orthopaedic Surgery
PROC: (CPT 22513; principal; 2024-10-21 09:15)
DX: M80.08XA Age-related osteoporosis with current pathological fracture, vertebra(e), initial encounter for fracture (principal); F32.A Depression, unspecified; F41.9 Anxiety disorder, unspecified; Z79.899 Other long term (current) drug therapy; Z86.69 Personal history of other diseases of the nervous system and sense organs; F17.210 Nicotine dependence, cigarettes, uncomplicated
CPT/HCPCS: 22513; 22515; 76000; J0690; J1100; J2250; J2405; J2704; J3010; J3490; J7030; J9999

== ENCOUNTER → 2024-10-29 15:09 | Outpatient (BNVA) | payer MEDICARE, MEDICAID, SELFPAY | PROVIDERS: PCP Family Medicine; Visit Provider Orthopaedic Surgery | DX: Z98.890 Other specified postprocedural states (principal); M54.9 Dorsalgia, unspecified | CPT/HCPCS: 72072; 72100; 99024 ==

== ENCOUNTER 2024-11-06 16:07 | Outpatient (CLI) | payer MEDICARE, MEDICAID, SELFPAY ==
--- NOTE | 2024-11-06 16:00 | MRR_ITS ---
PROCEDURE INFORMATION: Exam: MR Thoracic Spine Without Contrast Exam date and time: 11/06/2024 4:18 PM Age: 69 years old Clinical indication: Pain in thoracic spine; Prior surgery; Surgery date: <1 month; Surgery type: Kyphoplasty 10/21/24; Mid and low back pain-low right side posteriorly; Post op kyphoplasty(10-21-24) TECHNIQUE: Imaging protocol: Magnetic resonance imaging of the thoracic spine without contrast. COMPARISON: 1. MR thoracic spin wo con* [id number] 09/24/2024 2:47 PM 2. CR XR thoracic spine 3V* [id number] 10/29/2024 3:17 PM 3. CR XR thoracic spine 3V* [id number] 10/13/2024 4:39 PM FINDINGS: Bones/joints: No new fracture. Stable augmented nonacute compression deformities of the T6, T8, L1 and L2 vertebral bodies. Augmentation of the T9 and T12 vertebral bodies with similar to slightly increased height loss at the T9 vertebral body and stable slight height loss at the T12 vertebral body, both vertebrae showing mild edema like marrow signal which now extends posteriorly along the left pedicles, likely representing postprocedural change. Similar exaggerated thoracic kyphosis. Spinal cord: Normal signal. No cord compression. T1-T2: No significant disc bulge or herniation. No severe spinal canal stenosis. No significant neural foraminal narrowing. T2-T3: No significant disc bulge or herniation. No severe spinal canal stenosis. No significant neural foraminal narrowing. T3-T4: No significant disc bulge or herniation. No severe spinal canal stenosis. No significant neural foraminal narrowing. T4-T5: No significant disc bulge or herniation. No severe spinal canal stenosis. No significant neural foraminal narrowing. T5-T6: No significant disc bulge or herniation. No severe spinal canal stenosis. No significant neural foraminal narrowing. T6-T7: No significant disc bulge or herniation. No severe spinal canal stenosis. No significant neural foraminal narrowing. T7-T8: No significant disc bulge or herniation. No severe spinal canal stenosis. No significant neural foraminal narrowing. T8-T9: No significant disc bulge or herniation. No severe spinal canal stenosis. No significant neural foraminal narrowing. T9-T10: Mild discovertebral degenerative change with mild right neural foraminal stenosis. No significant spinal canal or left neural foraminal stenosis. T10-T11: No significant disc bulge or herniation. No severe spinal canal stenosis. No significant neural foraminal narrowing. T11-T12: Mild discovertebral degenerative change with mild right neural foraminal stenosis. No significant spinal canal or left neural foraminal stenosis. T12-L1: No significant disc bulge or herniation. No severe spinal canal stenosis. No significant neural foraminal narrowing. Soft tissues: Unremarkable. MR/MR thoracic spin wo con* [id number] IMPRESSION: 1. No new fracture. 2. Similar to slightly increased height loss at the augmented T9 vertebral body and stable slight height loss at the T12 vertebral body, both showing mild edema like marrow signal with posterior extension along the left pedicles likely representing postprocedural change. 3. Stable augmented compression deformities of the T6, T8, and L1 and L2 vertebral bodies. 4. Mild lower thoracic spine degenerative change without severe spinal canal or neural foraminal stenosis.
== END 2024-11-06 16:08 | disposition home or self-care (01) ==
LOC: RAD 16:09
PROVIDERS: PCP Family Medicine; Visit Provider Orthopaedic Surgery
DX: M54.9 Dorsalgia, unspecified (principal)
CPT/HCPCS: 72146

== ENCOUNTER → 2024-11-12 15:36 | Outpatient (BNVA) | payer MEDICARE, MEDICAID, SELFPAY | PROVIDERS: PCP Family Medicine; Visit Provider Orthopaedic Surgery | DX: S22.080A Wedge compression fracture of T11-T12 vertebra, initial encounter for closed fracture (principal); X58.XXXA Exposure to other specified factors, initial encounter | CPT/HCPCS: 99214 ==

== ENCOUNTER 2025-04-22 15:50 | Outpatient (CLI) | payer MEDICARE, MEDICAID, SELFPAY ==
--- NOTE | 2025-04-22 16:06 | CT_ITS ---
WS: [id number] LDCT LUNG CANCER SCREENING HISTORY: NICOTINE DEPENDENCE, CIGARETTES TECHNIQUE: Axial imaging performed from the apices to 1 cm below the costophrenic angles. Coronal and sagittal reformats are submitted with axial MIP series. All CT scans at [facility] use at least one of these dose optimization techniques: automated exposure control; mA and/or kV adjustment per patient size (includes targeted exams where dose is matched to clinical indication); or iterative reconstruction. DLP: 40.41 mGy.cm DIvol: Mean CTDIvol: 0.70 (mGy) COMPARISON: 08/02/2021 Diagnostic quality: Satisfactory Lungs: Marked pulmonary hyperinflation. Prominent interstitium throughout both lungs. There are several micronodules and slightly enlarged nodules and perifissural nodules which are stable since 08/02/2021. No new or enlarging mass. Pleural-based scar in the medial RIGHT upper lobe. Heart: Normal size heart with no pericardial effusion.. Other findings: Moderate atherosclerosis and ectasia thoracic aorta. Nonaneurysmal ectasia. Pulmonary artery slightly enlarged. No enlarged lymph nodes are identified on this noncontrast exam. Well-circumscribed sebaceous cyst measuring 1.3 cm in the anterior RIGHT thorax at the level of the shoulder. Surgical clips in the LEFT breast. Incompletely visualized low-attenuation mass in the LEFT kidney is probably a cyst. Increase in thoracic kyphosis. Multiple thoracic and lumbar vertebroplasties are reidentified. CT/CT lung screening [id number] IMPRESSION: LUNG-RADS: 2-Benign Appearance or Behavior FOLLOW UP: 12 Month: Continue annual screening with LDCT OTHER FINDINGS (S MODIFIER): None.
== END 2025-04-22 15:51 | disposition home or self-care (01) ==
LOC: RAD 15:51
PROVIDERS: PCP Family Medicine; Visit Provider Family Medicine
DX: Z12.2 Encounter for screening for malignant neoplasm of respiratory organs (principal); F17.210 Nicotine dependence, cigarettes, uncomplicated; I70.0 Atherosclerosis of aorta; I77.810 Thoracic aortic ectasia; I28.8 Other diseases of pulmonary vessels; L72.3 Sebaceous cyst; Z96.89 Presence of other specified functional implants; N28.89 Other specified disorders of kidney and ureter; M40.204 Unspecified kyphosis, thoracic region; M48.8X6 Other specified spondylopathies, lumbar region; M48.8X4 Other specified spondylopathies, thoracic region
CPT/HCPCS: 71271